=== PATIENT | female | born 1950 | race Caucasian/White ===

== ENCOUNTER 2018-07-16 14:42 | Emergency (ER) | END 2018-07-16 20:25 | disposition home or self-care (01) ==

== ENCOUNTER 2018-09-21 12:12 | Inpatient (IN) | payer MEDICARE, OTHER ==
[~2018-09-21] VITALS: Ht 162.6 cm; Wt 72.1 kg
[~2018-09-21 12:12] MED LIST: METO-319 PO; NIFE60TA18 PO
[2018-09-21] MEDS ORDERED: ASPIRIN 325 MG TAB PO STA (12:37)
[2018-09-21] MEDS ORDERED: SOD CHLORIDE 0.9% 1,000 ML IV STA (12:37)
[2018-09-21] MEDS ORDERED: LOSA1TAB28 PO (13:11)
--- NOTE | 2018-09-21 13:13 | ERD ---
ER Documentation Chief Complaint Chief Complaint WEAKNESS SINCE YESTERDAY HPI This is a 67-year-old female who said she woke up 2 days ago with her right arm/hand week. She says it is not gotten worse or better and she thinks she had a small stroke. No tingling in the face arm or leg no weakness in the face or leg on the right side. She is having off-and-on blurry vision at times which can happen with high blood pressure. 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 ROS All systems reviewed and are negative except as per history of present illness. Medications Home Meds Reported Medications Losartan-Hydrochlorothiazide (Losartan-HCTZ) 100-12.5 Mg Tab, 1 TAB PO DAILY, TAB 09/21/18 Nifedipine* (Nifedipine ER*) 60 Mg Tablet.sa, 60 MG PO DAILY, TAB.SA 09/03/18 Metoprolol Succinate* (Toprol XL*) 50 Mg Tab.er.24h, 50 MG PO DAILY, #30 TAB 09/03/18 Allergies Allergies: Coded Allergies: No Known Allergy (Unverified , 09/21/18) PMhx/Soc History of Surgery: No Anesthesia Reaction: No Hx Neurological Disorder: No Hx Respiratory Disorders: No Hx Cardiac Disorders: Yes (HTN) Hx Psychiatric Problems: No Hx Miscellaneous Medical Probl: No Hx Alcohol Use: Yes Hx Substance Use: Yes (MARIJUANA) Hx Tobacco Use: No Smoking Status: Never smoker FmHx Family History: No coronary disease Physical Exam Vitals Vital Signs Date Temp Pulse Resp B/P (MAP) Pulse Ox O2 O2 Flow FiO2 Time Delivery Rate 09/21/18 81 17 184/100 100 Room Air 13:15 (128) 09/21/18 Nasal 2 12:56 Cannula 09/21/18 98.5 86 18 207/137 99 12:17 (160) Physical Exam Const: Well-developed, well-nourished Head: Atraumatic, normocephalic Eyes: Normal Conjunctiva, PERRLA, EOMI, normal sclera, no nystagmus ENT: Normal External Ears, Nose and Mouth, moist mucus membranes. Neck: Full range of motion. No meningismus, no lymphadenopathy. Resp: Clear to auscultation bilaterally, no wheezing, rhonchi, rales Cardio: Regular rate and rhythm, no murmurs, S1 S2 present Abd: Soft, non tender x 4, non distended. 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, 4 out of 5, slightly weak at the biceps Psych: Normal Mood and Affect Result Diagram: 09/21/18 1254 09/21/18 1254 Results 24 hrs Laboratory Tests Test 09/21/18 12:54 White Blood Count 3.8 10^3/ul Red Blood Count 4.85 10^6/ul Hemoglobin 13.9 g/dl Hematocrit 42.7 % Mean Corpuscular Volume 88.0 fl Mean Corpuscular Hemoglobin 28.7 pg Mean Corpuscular Hemoglobin Concent 32.6 g/dl Red Cell Distribution Width 12.1 % Platelet Count 237 10^3/UL Mean Platelet Volume 10.1 fl Immature Granulocytes % 0.300 % Neutrophils % 56.1 % Lymphocytes % 28.9 % Monocytes % 14.1 % Eosinophils % 0.3 % Basophils % 0.3 % Nucleated Red Blood Cells % 0.0 /100WBC Immature Granulocytes # 0.010 10^3/ul Neutrophils # 2.1 10^3/ul Lymphocytes # 1.1 10^3/ul Monocytes # 0.5 10^3/ul Eosinophils # 0.0 10^3/ul Basophils # 0.0 10^3/ul Nucleated Red Blood Cells # 0.0 10^3/ul Prothrombin Time 12.1 Sec Prothrombin Time Ratio 0.9 INR International Normalized Ratio 0.89 Activated Partial Thromboplast Time 24.3 Sec Sodium Level 141 mmol/L Potassium Level 3.6 mmol/L Chloride Level 103 mmol/L Carbon Dioxide Level 26 mmol/L Anion Gap 12 Blood Urea Nitrogen 15 mg/dl Creatinine 0.92 mg/dl Est Glomerular Filtrat Rate mL/min > 60 mL/min Glucose Level 109 mg/dl Hemoglobin A1c 5.3 % Calcium Level 10.0 mg/dl Total Bilirubin 0.4 mg/dl Direct Bilirubin 0.00 mg/dl Indirect Bilirubin 0.4 mg/dl Aspartate Amino Transf (AST/SGOT) 25 IU/L Alanine Aminotransferase (ALT/SGPT) 8 IU/L Alkaline Phosphatase 83 IU/L Troponin I < 0.012 ng/ml Total Protein 7.9 g/dl Albumin 4.5 g/dl Globulin 3.40 g/dl Albumin/Globulin Ratio 1.32 Triglycerides Level 86 mg/dl Cholesterol Level 199 mg/dl LDL Cholesterol, Calculated 120 mg/dl HDL Cholesterol 62 mg/dl Cholesterol/HDL Ratio 3.2 RATIO Current Medications Medications Dose Sig/Genevieve Start Time Status Last (Trade) Ordered Route PRN Stop Time Admin Dose Reason Admin Sodium 1,000 ml @ Q1H STAT 09/21/18 DC 09/21/18 Chloride 1,000 mls/hr IV 12:37 12:56 09/21/18 13:36 Aspirin 325 mg ONCE STAT 09/21/18 DC 09/21/18 (Aspirin) PO 12:37 12:57 09/21/18 12:39 Procedures/MDM EKG: Rate/Rhythm: Normal sinus rhythm with inverted T waves laterally QRS, ST, QT: NORMAL AL, QRS, QT] Impression: Abnormal EKG MR #: [id number] DOS: 09/21/18 1237 Ordering MD: BUSTER SHULTZ DO Location: E/R Room/Bed: PROCEDURE: XR Chest. CLINICAL INDICATION: Stroke. Change in mental status. Shortness of breath. TECHNIQUE: Frontal chest x-ray was obtained. COMPARISON: None. FINDINGS: The heart is not enlarged. Mediastinum is not widened. No hilar masses seen. Lungs are clear of any infiltrates. There is no effusion or pneumothorax. The osseous structures appear normal. IMPRESSION: No evidence for active cardiopulmonary disease. .Corky Nieto MD, Date Time Electronically viewed and signed by .Corky Nieto MD, on 09/21/2018 13:28 .A/ CC: BUSTER SHULTZ DO [id number] We will admit the patient for CVA workup Departure Diagnosis: Primary Impression: CVA (cerebral vascular accident) CVA mechanism: unspecified Qualified Codes: I63.9 - Cerebral infarction, unspecified Condition: Stable BUSTER SHULTZ DO Sep 21, 2018 13:13
[2018-09-21] MEDS ORDERED: ACETAMINOPHEN 325 MG TAB PO PRN (16:00)
[2018-09-21] MEDS ORDERED: ONDANSETRON 4 MG INJ IV PRN (16:00)
--- NOTE | 2018-09-21 16:16 | HP ---
Date/Time of Note Date/Time of Note DATE: 09/21/18 TIME: 16:07 Assessment/Plan VTE Prophylaxis SCD applied (from Nsg): Yes Pharmacological prophylaxis: heparin Lines/Catheters IV Catheter Type (from Nrsg): [place] line still needed: No Urinary Cath still in place: No Assessment/Plan Hospital Course 67 y/o pmh HX of HTN admitted with RUE weakness x1 day, suspicious for CVA. Assessment/Plan #RUE weakness-suspicious for CVA -will consult neurology -MRI Brain w/ DWI -carotid US vs MRA -TTE -BP control but will allow permissive HTN -may need to start on ASA and statin. Lipids controlled but may benefit given high ASCVD core and risk -PT eval & treat #HTN -continue current meds, MTP 50, losartan/hctz 100/12.5, nifedipine 60 Dispo: I anticipate she will be hospitalized ~2 days for workup and treatment Result Diagram: 09/21/18 1254 09/21/18 1254 Results 24hrs Laboratory Tests Test 09/21/18 12:54 White Blood Count 3.8 L Red Blood Count 4.85 Hemoglobin 13.9 Hematocrit 42.7 Mean Corpuscular Volume 88.0 Mean Corpuscular Hemoglobin 28.7 L Mean Corpuscular Hemoglobin Concent 32.6 Red Cell Distribution Width 12.1 Platelet Count 237 Mean Platelet Volume 10.1 Immature Granulocytes % 0.300 Neutrophils % 56.1 Lymphocytes % 28.9 Monocytes % 14.1 H Eosinophils % 0.3 Basophils % 0.3 Nucleated Red Blood Cells % 0.0 Immature Granulocytes # 0.010 Neutrophils # 2.1 Lymphocytes # 1.1 Monocytes # 0.5 Eosinophils # 0.0 Basophils # 0.0 Nucleated Red Blood Cells # 0.0 Prothrombin Time 12.1 Prothrombin Time Ratio 0.9 INR International Normalized Ratio 0.89 Activated Partial Thromboplast Time 24.3 Sodium Level 141 Potassium Level 3.6 Chloride Level 103 Carbon Dioxide Level 26 Anion Gap 12 Blood Urea Nitrogen 15 Creatinine 0.92 Est Glomerular Filtrat Rate mL/min > 60 Glucose Level 109 Hemoglobin A1c 5.3 Calcium Level 10.0 Total Bilirubin 0.4 Direct Bilirubin 0.00 Indirect Bilirubin 0.4 Aspartate Amino Transf (AST/SGOT) 25 Alanine Aminotransferase (ALT/SGPT) 8 L Alkaline Phosphatase 83 Troponin I < 0.012 Total Protein 7.9 Albumin 4.5 Globulin 3.40 H Albumin/Globulin Ratio 1.32 Triglycerides Level 86 Cholesterol Level 199 LDL Cholesterol, Calculated 120 HDL Cholesterol 62 Cholesterol/HDL Ratio 3.2 HPI/ROS Admit Date/Time Admit Date/Time 1600 09/21/2018 Hx of Present Illness Patient with pmh of HTN presented to ED with R arm weakness x 1 day, noticed when she woke up yesterday morning. She also endorses blurry vision yesterday which has improved. endorses some loss of balance. Denies falls. Denies trauma. Denies pain. Denies headache. Denies fevers, chills, nausea, vomiting, diarrhea, constipation, abdominal pain. Upon admission to ED patients BP was 207/136--> improved to 150s/90s without meds. She doesnt check her BP at home, this month saw her pcp and it was 150/80s in office. she is compliant with meds. No prior hx of CVA. In ED was found to have chronic lacunar strokes on CT. CXR negative. EKG with TWI V4-V6 otherwise NSR, no ST elevations or depressions. ROS see above. PMH/Family/Social Past Medical History HTN Medications Current Medications Ondansetron HCl (Zofran Inj) 4 mg ER BRIDGE PRN IV NAUSEA/VOMITING; Start 09/21/18 at 16:00; Stop 09/22/18 at 15:59 Acetaminophen (Tylenol Tab) 650 mg ER BRIDGE PRN PO .MILD PAIN 1-3 OR TEMP; Start 09/21/18 at 16:00; Stop 09/22/18 at 15:59 Metoprolol Succinate (Toprol Xl) 50 mg DAILY PO ; Start 09/22/18 at 09:00 Nifedipine (Procardia Xl) 60 mg DAILY PO ; Start 09/22/18 at 09:00 Losartan Potassium (Cozaar) 100 mg DAILY PO ; Start 09/22/18 at 09:00 Coded Allergies: No Known Allergy (Unverified , 09/21/18) Past Surgical History none Family History Significant Family History: no pertinent family hx Social History 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 Denies smoking. Denies alcohol. Alcohol Use: none Smoking Status: Never smoker Drug Use: none Exam/Review of Systems Vital Signs Vitals Vital Signs Date Temp Pulse Resp B/P (MAP) Pulse Ox O2 O2 Flow FiO2 Time Delivery Rate 09/21/18 81 14 119/107 99 Room Air 15:56 (111) 09/21/18 98.2 14:27 09/21/18 2 12:56 Exam Exam Gen-NAD HEENT-op clear, mmm CV-rrr, nml s1/s2, no m/r/g pulm-CTAB, no w/r/r Ext-no c/c/e Neuro-CN II-XII intact. 5/5 bilateral lower extremity strength. 5/5 LUE strength. 4/5 RLE strength. No loss of sensation. MANUEL KENNY MD Sep 21, 2018 16:16
[2018-09-21 18:13] VITALS: PULSE 80
[2018-09-21 18:38] VITALS: BP 169/96; PULSE 89; RESP 18
[2018-09-21 20:00] VITALS: BP 161/92; PULSE 80; PULSE 85; RESP 19
--- NOTE | 2018-09-21 20:45 | CONS ---
Assessment/Plan Assessment/Plan Hospital Course 67 F w/ reported Hx of HTN, who presents for evaluation of R arm weakness...for which neurology is consulted. MRI confirmed a recent L ellis radiata infarction. CUS is without hemodynamically significant stenosis LDL 120 s/p asa 352mg x 1 (09/21) P: Start asa 81mg daily Add Lipitor 80mg hs in the short term (goal LDL < 70) Add UDS, ESR, RPR Await EKG/Echo PT/OT/ST as necessary BP control and other management per primary Consultation Date/Type/Reason Admit Date/Time 1600 09/21/2018 Type of Consult Neurology Reason for Consultation arm weakness Requesting Provider: MANUEL KENNY MD Date/Time of Note DATE: 09/21/18 TIME: 20:39 Hx of Present Illness Patient with pmh of HTN presented to ED with R arm weakness x 1 day, noticed when she woke up yesterday morning. She also endorses blurry vision yesterday which has improved. endorses some loss of balance. Denies falls. Denies trauma. Denies pain. Denies headache. Denies fevers, chills, nausea, vomiting, diarrhea, constipation, abdominal pain. Upon admission to ED patients BP was 207/136--> improved to 150s/90s without meds. She doesnt check her BP at home, this month saw her pcp and it was 150/80s in office. she is compliant with meds. No prior hx of CVA. In ED was found to have chronic lacunar strokes on CT. CXR negative. EKG with TWI V4-V6 otherwise NSR, no ST elevations or depressions. 12 PT ROS ow neg Exam/Review of Systems Exam Vitals Vital Signs Date Temp Pulse Resp B/P (MAP) Pulse Ox O2 O2 Flow FiO2 Time Delivery Rate 09/21/18 98.1 85 19 161/92 98 20:00 (115) 09/21/18 Room Air 18:38 09/21/18 2 12:56 Exam PE: Gen Appearance: No Apparent Distress HEENT: Normocephalic Cardiovascular: Regular rate Lungs: Clear bilaterally Abdomen: Soft Extremities: Dry NE: The patient was alert and oriented. Language was normal. Fund of knowledge was normal. Pupils were equal and reactive to light. There was no afferent pupillary defect. Visual angel were normal. Funduscopic examination was limited. Extra-ocular movements were full. Ptosis was absent. There was no nystagmus. Facial sensation was normal. Face was symmetric with normal strength. Hearing was intact. Palate movements were normal. Neck strength was normal. There was normal tongue bulk and speed of movement. Tone was normal. Muscle bulk was normal. I did not see fasciculations. RUE was moderately weak. Vibration sensation was normal. Temperature and pinprick sensation was normal. Rapid alternating movements were normal. There was no dysmetria. There was no intention tremor. Gait was deferred due to bedrest. Arm and leg reflexes were symmetric. Duvall's sign was absent. Plantar responses were flexor. Results Result Diagram: 09/21/18 1254 09/21/18 1254 Results 24hrs Laboratory Tests Test 09/21/18 12:54 09/21/18 18:05 White Blood Count 3.8 L Red Blood Count 4.85 Hemoglobin 13.9 Hematocrit 42.7 Mean Corpuscular Volume 88.0 Mean Corpuscular Hemoglobin 28.7 L Mean Corpuscular Hemoglobin Concent 32.6 Red Cell Distribution Width 12.1 Platelet Count 237 Mean Platelet Volume 10.1 Immature Granulocytes % 0.300 Neutrophils % 56.1 Lymphocytes % 28.9 Monocytes % 14.1 H Eosinophils % 0.3 Basophils % 0.3 Nucleated Red Blood Cells % 0.0 Immature Granulocytes # 0.010 Neutrophils # 2.1 Lymphocytes # 1.1 Monocytes # 0.5 Eosinophils # 0.0 Basophils # 0.0 Nucleated Red Blood Cells # 0.0 Prothrombin Time 12.1 Prothrombin Time Ratio 0.9 INR International Normalized Ratio 0.89 Activated Partial Thromboplast Time 24.3 Sodium Level 141 Potassium Level 3.6 Chloride Level 103 Carbon Dioxide Level 26 Anion Gap 12 Blood Urea Nitrogen 15 Creatinine 0.92 Est Glomerular Filtrat Rate mL/min > 60 Glucose Level 109 Hemoglobin A1c 5.3 Calcium Level 10.0 Total Bilirubin 0.4 Direct Bilirubin 0.00 Indirect Bilirubin 0.4 Aspartate Amino Transf (AST/SGOT) 25 Alanine Aminotransferase (ALT/SGPT) 8 L Alkaline Phosphatase 83 Troponin I < 0.012 Total Protein 7.9 Albumin 4.5 Globulin 3.40 H Albumin/Globulin Ratio 1.32 Triglycerides Level 86 Cholesterol Level 199 LDL Cholesterol, Calculated 120 HDL Cholesterol 62 Cholesterol/HDL Ratio 3.2 Urine Color COLORLESS Urine Clarity CLEAR Urine pH 7.0 Urine Specific [place] 1.004 Urine Ketones NEGATIVE Urine Nitrite NEGATIVE Urine Bilirubin NEGATIVE Urine Urobilinogen NEGATIVE Urine Leukocyte Esterase NEGATIVE Urine Hemoglobin NEGATIVE Urine Glucose NEGATIVE Urine Total Protein NEGATIVE Medications Medication Current Medications Ondansetron HCl (Zofran Inj) 4 mg ER BRIDGE PRN IV NAUSEA/VOMITING; Start 09/21/18 at 16:00; Stop 09/22/18 at 15:59 Acetaminophen (Tylenol Tab) 650 mg ER BRIDGE PRN PO .MILD PAIN 1-3 OR TEMP; Start 09/21/18 at 16:00; Stop 09/22/18 at 15:59 Metoprolol Succinate (Toprol Xl) 50 mg DAILY PO ; Start 09/22/18 at 09:00 Nifedipine (Procardia Xl) 60 mg DAILY PO ; Start 09/22/18 at 09:00 Losartan Potassium (Cozaar) 100 mg DAILY PO ; Start 09/22/18 at 09:00 Hydrochlorothiazide (Hydrochlorothiazide) 12.5 mg DAILY PO ; Start 09/22/18 at 09:00 Heparin Sodium (Porcine) (Heparin (5000 Units/1ml)) 5,000 unit BID SC ; Start 09/21/18 at 21:00 Miscellaneous Information Patients own medicat... BID@10,16 XX ; Start 09/22/18 at 10:00 Past Medical History reviewed Home Meds Reported Medications Losartan-Hydrochlorothiazide (Losartan-HCTZ) 100-12.5 Mg Tab, 1 TAB PO DAILY, TAB 09/21/18 Nifedipine* (Nifedipine ER*) 60 Mg Tablet.sa, 60 MG PO DAILY, TAB.SA 09/03/18 Metoprolol Succinate* (Toprol XL*) 50 Mg Tab.er.24h, 50 MG PO DAILY, #30 TAB 09/03/18 Medications Current Medications Ondansetron HCl (Zofran Inj) 4 mg ER BRIDGE PRN IV NAUSEA/VOMITING; Start 09/21/18 at 16:00; Stop 09/22/18 at 15:59 Acetaminophen (Tylenol Tab) 650 mg ER BRIDGE PRN PO .MILD PAIN 1-3 OR TEMP; Start 09/21/18 at 16:00; Stop 09/22/18 at 15:59 Metoprolol Succinate (Toprol Xl) 50 mg DAILY PO ; Start 09/22/18 at 09:00 Nifedipine (Procardia Xl) 60 mg DAILY PO ; Start 09/22/18 at 09:00 Losartan Potassium (Cozaar) 100 mg DAILY PO ; Start 09/22/18 at 09:00 Hydrochlorothiazide (Hydrochlorothiazide) 12.5 mg DAILY PO ; Start 09/22/18 at 09:00 Heparin Sodium (Porcine) (Heparin (5000 Units/1ml)) 5,000 unit BID SC ; Start 09/21/18 at 21:00 Miscellaneous Information Patients own medicat... BID@10,16 XX ; Start 09/22/18 at 10:00 Allergies: Coded Allergies: No Known Allergy (Unverified , 09/21/18) Past Surgical History reviewed Social History Alcohol Use: none Smoking Status: Never smoker Drug Use: none JESSICA DUARTE Sep 21, 2018 20:45
[2018-09-21] MEDS: ATORVASTATIN 80 MG TAB PO SCH (21:28)
[2018-09-21 21:31] VITALS: Ht 162.6 cm; Wt 72.1 kg
[2018-09-21] MEDS: HEPARIN 5,000 UNIT/1 ML VIAL SC SCH (22:26)
[2018-09-22] VITALS (9 sets, daily range): BP systolic 134–156; BP diastolic 81–91; PULSE 56–88; RESP 18
[2018-09-22] MEDS: LOSARTAN 50 MG TAB PO SCH (09:10)
[2018-09-22] MEDS: HYDROCHLOROTHIAZIDE 12.5 MG CAP PO SCH (09:10)
[2018-09-22] MEDS: NIFEdipine (XL) 60 MG TAB PO SCH (09:10)
[2018-09-22] MEDS: ASPIRIN (EC) 81 MG TAB PO SCH (09:11)
[2018-09-22] MEDS: METOPROLOL (XL) 50 MG TAB PO SCH (09:14)
--- NOTE | 2018-09-22 09:35 | PN ---
Date/Time of Note Date/Time of Note DATE: 09/22/18 TIME: 09:31 Subjective Patient continues to have RUE weakness. Denies fevers, chills, nausea, vomiting, diarrhea, constipation, chest pain, sob, cough. BP better this am. No overnight events. TTE done, read pending. Evaluated by PT, weakness mostly limited to distal RUE. Gait at baseline. MRI confirmed acute infarct within dorsal L ellis radiata. Carotid duplex negative for hemodynamically significant stenosis. Started on atorva and aspirin by neurologist. Objective Vitals Vital Signs Date Temp Pulse Resp B/P (MAP) Pulse Ox O2 O2 Flow FiO2 Time Delivery Rate 09/22/18 56 08:12 09/22/18 98.4 18 134/84 98 Room Air 07:54 (101) 09/21/18 2 12:56 Intake and Output 09/21/18 09/21/18 09/22/18 1515:00 23:00 07:00 IntakeIntake Total 150 ml BalanceBalance 150 ml Results Result Diagram: 09/22/18 0549 09/22/18 0549 Medications Medications Current Medications Ondansetron HCl (Zofran Inj) 4 mg ER BRIDGE PRN IV NAUSEA/VOMITING; Start 09/21/18 at 16:00; Stop 09/22/18 at 15:59 Acetaminophen (Tylenol Tab) 650 mg ER BRIDGE PRN PO .MILD PAIN 1-3 OR TEMP; Start 09/21/18 at 16:00; Stop 09/22/18 at 15:59 Metoprolol Succinate (Toprol Xl) 50 mg DAILY PO Last administered on 09/22/18at 09:14; Admin Dose 50 MG; Start 09/22/18 at 09:00 Nifedipine (Procardia Xl) 60 mg DAILY PO ; Start 09/22/18 at 09:00 Losartan Potassium (Cozaar) 100 mg DAILY PO ; Start 09/22/18 at 09:00 Hydrochlorothiazide (Hydrochlorothiazide) 12.5 mg DAILY PO ; Start 09/22/18 at 09:00 Heparin Sodium (Porcine) (Heparin (5000 Units/1ml)) 5,000 unit BID SC Last administered on 09/21/18at 22:26; Admin Dose 5,000 UNIT; Start 09/21/18 at 21:00 Miscellaneous Information Patients own medicat... BID@,16 XX ; Start 09/22/18 at 10:00 Aspirin (Halfprin) 81 mg DAILY PO ; Start 09/22/18 at 09:00 Atorvastatin Calcium (Lipitor) 80 mg HS PO Last administered on 09/21/18at 21:28; Admin Dose 80 MG; Start 09/21/18 at 21:00 VTE Prophylaxis Risk score (from Ns)>0 risk: 4 SCD applied (from Ns): Yes Pharmacological prophylaxis: heparin Lines/Catheters IV Catheter Type: Peripheral IV Ramos in Place: No Assessment/Plan Hospital Course 67 y/o pmh HX of HTN admitted with RUE weakness x1 day, confirmed CVA. Assessment/Plan #acute CVA -appreciate neuro recs -pending TTE read -BP control but will allow permissive HTN -continue ASA 81, atorva 80 -PT #HTN will keep BP <160 systolic and tighter control after first few days post cva -continue current meds, MTP 50, losartan/hctz 100/12.5, nifedipine 60 Dispo: hope to discharge tomorrow pending completion of workup and clinical stability MANUEL KENNY MD Sep 22, 2018 09:35
[2018-09-22] MEDS: HEPARIN 5,000 UNIT/1 ML VIAL SC SCH ×2 (10:18→22:00)
[2018-09-22] MEDS ORDERED: POTASSIUM CHLORIDE (SR) 20 MEQ TAB PO STA (11:36)
[2018-09-22] MEDS: ATORVASTATIN 80 MG TAB PO SCH (21:57)
[2018-09-23] VITALS (12 sets, daily range): BP systolic 114–167; BP diastolic 70–86; PULSE 58–96; RESP 16–18
--- NOTE | 2018-09-23 08:33 | PN ---
Date/Time of Note Date/Time of Note DATE: 09/23/18 TIME: 08:30 Assessment/Plan VTE Prophylaxis Risk score (from Nsg)>0 risk: 4 SCD applied (from Nsg): Yes Pharmacological prophylaxis: heparin Lines/Catheters IV Catheter Type (from Nrsg): Peripheral IV Urinary Cath still in place: No Assessment/Plan Assessment/Plan 1. Thrombotic infarct, stable, on asa and statin and BP controlled, will obtain echocardiogram and monitor BP and rhythm for additional 24 hours. 2. Case management requested-->acute rehab at [facility] or [facility] Result Diagram: 09/22/18 0549 09/23/18 0535 Results 24hrs Laboratory Tests Test 09/23/18 05:35 Sodium Level 144 Potassium Level 3.5 Chloride Level 106 Carbon Dioxide Level 31 Anion Gap 7 Blood Urea Nitrogen 19 Creatinine 1.19 H Est Glomerular Filtrat Rate mL/min 45 L Glucose Level 95 Calcium Level 9.7 Subjective 24 Hr Interval Summary Cardiovascular: No chest pain Gastrointestinal: no complaints Genitourinary: no complaints Musculoskeletal: no complaints Neurologic: other (weakness left upper extrem) Exam/Review of Systems Exam Vitals Vital Signs Date Temp Pulse Resp B/P (MAP) Pulse Ox O2 O2 Flow FiO2 Time Delivery Rate 09/23/18 94 08:01 09/23/18 97.7 16 134/77 98 Room Air 07:22 (96) 09/21/18 2 12:56 Intake and Output 09/22/18 09/22/18 09/23/18 1515:00 23:00 07:00 IntakeIntake Total 800 ml BalanceBalance 800 ml Neck: No jvd Respiratory: clear to auscultation Cardiovascular: regular rate and rhythm Gastrointestinal: soft Neurological: focal weakness (left upper extrem) Results Results 24hrs Laboratory Tests Test 09/23/18 05:35 Sodium Level 144 Potassium Level 3.5 Chloride Level 106 Carbon Dioxide Level 31 Anion Gap 7 Blood Urea Nitrogen 19 Creatinine 1.19 H Est Glomerular Filtrat Rate mL/min 45 L Glucose Level 95 Calcium Level 9.7 Medications Medication Current Medications Metoprolol Succinate (Toprol Xl) 50 mg DAILY PO Last administered on 09/22/18at 09:14; Admin Dose 50 MG; Start 09/22/18 at 09:00 Nifedipine (Procardia Xl) 60 mg DAILY PO Last administered on 09/22/18at 09:10; Admin Dose 60 MG; Start 09/22/18 at 09:00 Losartan Potassium (Cozaar) 100 mg DAILY PO Last administered on 09/22/18 09:10; Admin Dose 100 MG; Start 09/22/18 at 09:00 Hydrochlorothiazide (Hydrochlorothiazide) 12.5 mg DAILY PO Last administered on 09/22/18 09:10; Admin Dose 12.5 MG; Start 09/22/18 at 09:00 Heparin Sodium (Porcine) (Heparin (5000 Units/1ml)) 5,000 unit BID SC Last administered on 09/22/18 22:00; Admin Dose 5,000 UNIT; Start 09/21/18 at 21:00 Miscellaneous Information Patients own medicat... BID@10,16 XX ; Start 09/22/18 at 10:00 Aspirin (Halfprin) 81 mg DAILY PO Last administered on 09/22/18 09:11; Admin Dose 81 MG; Start 09/22/18 at 09:00 Atorvastatin Calcium (Lipitor) 80 mg HS PO Last administered on 09/22/18 21 :57; Admin Dose 80 MG; Start 09/21/18 at 21:00 RENITA WILL MD Sep 23, 2018 08:32
[2018-09-23] MEDS: NIFEdipine (XL) 60 MG TAB PO SCH (08:44)
[2018-09-23] MEDS: HYDROCHLOROTHIAZIDE 12.5 MG CAP PO SCH (08:45)
[2018-09-23] MEDS: LOSARTAN 50 MG TAB PO SCH (08:45)
[2018-09-23] MEDS: METOPROLOL (XL) 50 MG TAB PO SCH (08:45)
[2018-09-23] MEDS: ASPIRIN (EC) 81 MG TAB PO SCH (08:45)
[2018-09-23] MEDS: HEPARIN 5,000 UNIT/1 ML VIAL SC SCH ×2 (08:57→20:54)
--- NOTE | 2018-09-23 12:09 | RADRPT ---
Echocardiogram Report Patient Name: CHERYLE BOXPatient ID: [id number] : 1950 (68y )Study Date: 09/22/2018 8:41:58 AM Gender: FAccession #: [id number] Tech: JOHN Location: Ref.Physician: MANUEL KENNY Height(Cm): BSA: Weight(Kg): Quality: GoodAccount #: Procedures: Echocardiographic Report: Transthoracic echocardiogram with complete 2D, M-Mode, and doppler examination. Indications: Cerebrovascular Accident. Measurements: 2D/M Mode Doppler Measurement Value Normal Range Measurement Value Normal Range LVIDd 2D 3.8 [ 3.8 - 5.2 ] cm MIKA Vmax 2.0 [ 2.0 - 4.0 ] cm2 LVIDs 2D 2.5 [ 2.2 - 3.5 ] cm AV Mean Luis A 1.0 [ 70.0 - 90.0 ] cm/sec LVPWd 2D 1.1 [ 0.6 - 0.9 ] cm AV Mean PG 5.0 [ 2.0 - 4.0 ] mmHg IVSd 2D 1.2 [ 0.6 - 0.9 ] cm AV Peak Luis A 1.4 [ 100.0 - 170.0 ] cm/sec IVS/LVPW 2D 1.0 ratio AV Peak PG 8.0 [ 2.0 - 9.0 ] mmHg EF 2D 60.0 [ 54.0 - 74.0 ] percent AV VTI 22.9 cm LVOT Diam 2.0 [ 2.1 - 2.5 ] cm LVOT Peak Luis A 0.9 [ 70.0 - 110.0 ] cm/sec LVOT Area 3.1 cm2 LVOT Peak PG 3.0 [ 2.0 - 6.0 ] mmHg MV E Peak Luis A 0.6 [ 60.0 - 130.0 ] cm/sec MV A Peak Luis A 0.8 [ 100.0 - 120.0 ] cm/sec MV E/A 0.7 [ 0.8 - 1.5 ] ratio MV Decel Time 278 [ 104 - 258 ] msec Lat E` Luis A 0.0 [ 10.0 - 15.0 ] cm/sec Med E` Luis A 0.0 cm/sec MV E/A 0.7 [ 0.8 - 1.5 ] ratio PV Peak Luis A 0.9 [ 40.0 - 80.0 ] cm/sec PV Peak PG 3.0 mmHg Findings: Left Ventricle: Normal left ventricular systolic function. Mild concentric left ventricular hypertrophy. Ejection fraction is visually estimated at 60-65 %. Tissue Doppler/Mitral Doppler indices are consistent with impaired relaxation (Stage I diastolic dysfunction). Right Ventricle: Normal right ventricular size. Normal right ventricular systolic function. Left Atrium: Upper limit of normal left atrial size. Right Atrium: The right atrium is normal in size. Mitral Valve: Normal appearance and function of the mitral valve with trace physiologic regurgitation. Aortic Valve: Normal appearance of the aortic valve. No significant aortic stenosis wit trivial insufficiency. Tricuspid Valve: Normal appearance and function of the tricuspid valve with trace physiologic regurgitation. Unable to obtain RVSP due to minimal presence of tricuspid regurgitation. Pulmonic Valve: Normal pulmonic valve appearance. There is trace pulmonic regurgitation. Pericardium: Normal pericardium with no significant pericardial effusion. Aorta: Normal aortic root. IVC: Normal size and normal respiratory collapse consistent with normal right atrial pressure. Conclusions: Normal left ventricular systolic function. Mild concentric left ventricular hypertrophy. Ejection fraction is visually estimated at 60-65 %. Tissue Doppler/Mitral Doppler indices are consistent with impaired relaxation (Stage I diastolic dysfunction). Normal right ventricular size. Normal right ventricular systolic function. Upper limit of normal left atrial size. Normal appearance of the aortic valve. No significant aortic stenosis wit trivial insufficiency. Normal pericardium with no significant pericardial effusion. Normal appearance and function of the tricuspid valve with trace physiologic regurgitation. Unable to obtain RVSP due to minimal presence of tricuspid regurgitation. Normal size and normal respiratory collapse consistent with normal right atrial pressure. No Vegetation, masses, or thrombi seen. Electronically Signed By: Curt Kennedy 2018-09-23 12:09:17 [facility]
--- NOTE | 2018-09-23 14:12 | CONS ---
Assessment/Plan Assessment/Plan Hospital Course (Demo Recall) Cryptogenic stroke- echo negative. no arrhythmia on tele. carotid u/s negative. - cont asa - c ont statin - outpt custodial tele monitor vs. loop - bp control Consultation Date/Type/Reason Admit Date/Time 1600 09/21/2018 Date/Time of Note DATE: 09/23/18 TIME: 14:12 Past Medical History Home Meds Reported Medications Losartan-Hydrochlorothiazide (Losartan-HCTZ) 100-12.5 Mg Tab, 1 TAB PO DAILY, TAB 09/21/18 Nifedipine* (Nifedipine ER*) 60 Mg Tablet.sa, 60 MG PO DAILY, TAB.SA 09/03/18 Metoprolol Succinate* (Toprol XL*) 50 Mg Tab.er.24h, 50 MG PO DAILY, #30 TAB 09/03/18 Medications Current Medications Metoprolol Succinate (Toprol Xl) 50 mg DAILY PO Last administered on 09/23/18at 08:45; Admin Dose 50 MG; Start 09/22/18 at 09:00 Nifedipine (Procardia Xl) 60 mg DAILY PO Last administered on 09/23/18at 08:44; Admin Dose 60 MG; Start 09/22/18 at 09:00 Losartan Potassium (Cozaar) 100 mg DAILY PO Last administered on 09/23/18at 08:45; Admin Dose 100 MG; Start 09/22/18 at 09:00 Hydrochlorothiazide (Hydrochlorothiazide) 12.5 mg DAILY PO Last administered on 09/23/18at 08:45; Admin Dose 12.5 MG; Start 09/22/18 at 09:00 Heparin Sodium (Porcine) (Heparin (5000 Units/1ml)) 5,000 unit BID SC Last administered on 09/23/18at 08:57; Admin Dose 5,000 UNIT; Start 09/21/18 at 21:00 Miscellaneous Information Patients own medicat... BID@10,16 XX ; Start 09/22/18 at 10:00 Aspirin (Halfprin) 81 mg DAILY PO Last administered on 09/23/18at 08:45; Admin Dose 81 MG; Start 09/22/18 at 09:00 Atorvastatin Calcium (Lipitor) 80 mg HS PO Last administered on 09/22/18at 21:57; Admin Dose 80 MG; Start 09/21/18 at 21:00 Allergies: Coded Allergies: No Known Allergy (Unverified , 09/21/18) Social History Alcohol Use: none Smoking Status: Former smoker Drug Use: none Exam/Review of Systems Exam Vitals Vital Signs Date Temp Pulse Resp B/P (MAP) Pulse Ox O2 O2 Flow FiO2 Time Delivery Rate 09/23/18 65 12:01 09/23/18 98.4 16 116/70 98 Room Air 11:24 (85) 09/21/18 2 12:56 Intake and Output 09/22/18 09/22/18 09/23/18 1515:00 23:00 07:00 IntakeIntake Total 800 ml BalanceBalance 800 ml Results Result Diagram: 09/22/18 0549 09/23/18 0535 Results 24hrs Laboratory Tests Test 09/23/18 05:35 Sodium Level 144 Potassium Level 3.5 Chloride Level 106 Carbon Dioxide Level 31 Anion Gap 7 Blood Urea Nitrogen 19 Creatinine 1.19 H Est Glomerular Filtrat Rate mL/min 45 L Glucose Level 95 Calcium Level 9.7 Medications Medication Current Medications Metoprolol Succinate (Toprol Xl) 50 mg DAILY PO Last administered on 09/23/18at 08:45; Admin Dose 50 MG; Start 09/22/18 at 09:00 Nifedipine (Procardia Xl) 60 mg DAILY PO Last administered on 09/23/18at 08:44; Admin Dose 60 MG; Start 09/22/18 at 09:00 Losartan Potassium (Cozaar) 100 mg DAILY PO Last administered on 09/23/18at 08:45; Admin Dose 100 MG; Start 09/22/18 at 09:00 Hydrochlorothiazide (Hydrochlorothiazide) 12.5 mg DAILY PO Last administered on 09/23/18at 08:45; Admin Dose 12.5 MG; Start 09/22/18 at 09:00 Heparin Sodium (Porcine) (Heparin (5000 Units/1ml)) 5,000 unit BID SC Last administered on 09/23/18at 08:57; Admin Dose 5,000 UNIT; Start 09/21/18 at 21:00 Miscellaneous Information Patients own medicat... BID@10,16 XX ; Start 09/22/18 at 10:00 Aspirin (Halfprin) 81 mg DAILY PO Last administered on 09/23/18at 08:45; Admin Dose 81 MG; Start 09/22/18 at 09:00 Atorvastatin Calcium (Lipitor) 80 mg HS PO Last administered on 09/22/18at 21:57; Admin Dose 80 MG; Start 09/21/18 at 21:00 SARAVANAN GOMEZ Sep 23, 2018 14:12
--- NOTE | 2018-09-23 16:45 | CONS ---
Assessment/Plan Assessment/Plan Hospital Course 67 F w/ reported Hx of HTN, who presents for evaluation of R arm weakness...for which neurology is consulted. MRI confirmed a recent L ellis radiata infarction. CUS is without hemodynamically significant stenosis Echo is unremarkable LDL 120 UDS neg RPR neg ESR wnl s/p asa 352mg x 1 (09/21) P: Cont asa 81mg daily Cont Lipitor 80mg hs in the short term (goal LDL < 70) PT/OT/ST as necessary BP control and other management per primary Neurologically cleared for d/c, to acute rehab if able Consultation Date/Type/Reason Admit Date/Time Sep 21, 2018 at 15:58 Type of Consult Neurology Reason for Consultation arm weakness Requesting Provider: MANUEL KENNY MD Date/Time of Note DATE: 09/23/18 TIME: 16:44 24 HR Interval Summary Free Text/Dictation Continues acute care Exam Vital Signs Vitals Vital Signs Date Temp Pulse Resp B/P (MAP) Pulse Ox O2 O2 Flow FiO2 Time Delivery Rate 09/23/18 96 16:01 09/23/18 97.7 16 167/86 98 Room Air 15:31 (113) 09/21/18 2 12:56 Intake and Output 09/22/18 09/22/18 09/23/18 1515:00 23:00 07:00 IntakeIntake Total 800 ml BalanceBalance 800 ml Exam Stable from prior JESSICA DUARTE Sep 23, 2018 16:45
[2018-09-23] MEDS: ATORVASTATIN 80 MG TAB PO SCH (20:49)
[2018-09-24] VITALS (8 sets, daily range): BP systolic 127–152; BP diastolic 79–87; PULSE 67–100; RESP 16–18
[2018-09-24] MEDS: NIFEdipine (XL) 60 MG TAB PO SCH (08:04)
[2018-09-24] MEDS: LOSARTAN 50 MG TAB PO SCH (08:04)
[2018-09-24] MEDS: HYDROCHLOROTHIAZIDE 12.5 MG CAP PO SCH (08:04)
[2018-09-24] MEDS: METOPROLOL (XL) 50 MG TAB PO SCH (08:05)
[2018-09-24] MEDS: ASPIRIN (EC) 81 MG TAB PO SCH (08:05)
[2018-09-24] MEDS: HEPARIN 5,000 UNIT/1 ML VIAL SC SCH (08:09)
--- NOTE | 2018-09-24 08:44 | PN ---
Date/Time of Note Date/Time of Note DATE: 09/24/18 TIME: 08:42 Assessment/Plan VTE Prophylaxis Risk score (from Ns)>0 risk: 5 SCD applied (from Ns): Yes Pharmacological prophylaxis: heparin Lines/Catheters IV Catheter Type [facility]from [facility] Saline Lock Urinary Cath still in place: No Assessment/Plan Assessment/Plan 1. Thrombotic infarct and related rue weakness 2. Neuro and cards consult and follow up apprrec 3. Stable neurologically and can transfer for rehab 4. Labs rev 5. BP controlled Result Diagram: 09/24/1846 09/24/1846 Results 24hrs Laboratory Tests Test 09/24/18 05:46 White Blood Count 3.8 L Red Blood Count 4.57 Hemoglobin 13.1 Hematocrit 41.1 Mean Corpuscular Volume 89.9 Mean Corpuscular Hemoglobin 28.7 L Mean Corpuscular Hemoglobin Concent 31.9 L Red Cell Distribution Width 12.5 Platelet Count 231 Mean Platelet Volume 10.0 Immature Granulocytes % 0.000 L Neutrophils % 40.8 Lymphocytes % 42.0 Monocytes % 15.9 H Eosinophils % 1.0 Basophils % 0.3 Nucleated Red Blood Cells % 0.0 Immature Granulocytes # 0.000 Neutrophils # 1.6 Lymphocytes # 1.6 Monocytes # 0.6 Eosinophils # 0.0 Basophils # 0.0 Nucleated Red Blood Cells # 0.0 Sodium Level 142 Potassium Level 3.9 Chloride Level 103 Carbon Dioxide Level 29 Anion Gap 10 Blood Urea Nitrogen 24 H Creatinine 1.45 H Est Glomerular Filtrat Rate mL/min 36 L Glucose Level 89 Calcium Level 9.7 Phosphorus Level 4.4 Magnesium Level 2.6 H Subjective 24 Hr Interval Summary Cardiovascular: No chest pain, No orthopenea Gastrointestinal: no complaints Genitourinary: no complaints Musculoskeletal: no complaints Neurologic: other (strength right upper extrem has improved a bit) Exam/Review of Systems Exam Vitals Vital Signs Date Temp Pulse Resp B/P (MAP) Pulse Ox O2 O2 Flow FiO2 Time Delivery Rate 09/24/18 100 08:01 09/24/18 97.6 18 129/82 98 Room Air 07:11 (98) 09/21/18 2 12:56 Intake and Output 09/23/18 09/23/18 09/24/18 1515:00 23:00 07:00 IntakeIntake Total 1500 ml 550 ml BalanceBalance 1500 ml 550 ml Neck: No jvd Respiratory: clear to auscultation Cardiovascular: regular rate and rhythm Gastrointestinal: soft Extremities: No edema Neurological: focal weakness (rue) Results Results 24hrs Laboratory Tests Test 09/24/18 05:46 White Blood Count 3.8 L Red Blood Count 4.57 Hemoglobin 13.1 Hematocrit 41.1 Mean Corpuscular Volume 89.9 Mean Corpuscular Hemoglobin 28.7 L Mean Corpuscular Hemoglobin Concent 31.9 L Red Cell Distribution Width 12.5 Platelet Count 231 Mean Platelet Volume 10.0 Immature Granulocytes % 0.000 L Neutrophils % 40.8 Lymphocytes % 42.0 Monocytes % 15.9 H Eosinophils % 1.0 Basophils % 0.3 Nucleated Red Blood Cells % 0.0 Immature Granulocytes # 0.000 Neutrophils # 1.6 Lymphocytes # 1.6 Monocytes # 0.6 Eosinophils # 0.0 Basophils # 0.0 Nucleated Red Blood Cells # 0.0 Sodium Level 142 Potassium Level 3.9 Chloride Level 103 Carbon Dioxide Level 29 Anion Gap 10 Blood Urea Nitrogen 24 H Creatinine 1.45 H Est Glomerular Filtrat Rate mL/min 36 L Glucose Level 89 Calcium Level 9.7 Phosphorus Level 4.4 Magnesium Level 2.6 H Medications Medication Current Medications Metoprolol Succinate (Toprol Xl) 50 mg DAILY PO Last administered on 09/24/18at 08:05; Admin Dose 50 MG; Start 09/22/18 at 09:00 Nifedipine (Procardia Xl) 60 mg DAILY PO Last administered on 09/24/18at 08:04; Admin Dose 60 MG; Start 09/22/18 at 09:00 Losartan Potassium (Cozaar) 100 mg DAILY PO Last administered on 09/24/18at 08:04; Admin Dose 100 MG; Start 09/22/18 at 09:00 Hydrochlorothiazide (Hydrochlorothiazide) 12.5 mg DAILY PO Last administered on 09/24/18at 08:04; Admin Dose 12.5 MG; Start 09/22/18 at 09:00 Heparin Sodium (Porcine) (Heparin (5000 Units/1ml)) 5,000 unit BID SC Last administered on 09/24/18at 08:09; Admin Dose 5,000 UNIT; Start 09/21/18 at 21:00 Miscellaneous Information Patients own medicat... BID@10,16 XX ; Start 09/22/18 at 10:00 Aspirin (Halfprin) 81 mg DAILY PO Last administered on 09/24/18at 08:05; Admin Dose 81 MG; Start 09/22/18 at 09:00 Atorvastatin Calcium (Lipitor) 80 mg HS PO Last administered on 09/23/18at 20:49; Admin Dose 80 MG; Start 09/21/18 at 21:00 RENITA WILL MD Sep 24, 2018 08:43
[2018-09-24] MEDS ORDERED: ASPI-1044 PO (08:45)
[2018-09-24] MEDS ORDERED: ATOR-2 PO (08:45)
--- NOTE | 2018-09-24 13:51 | CONS ---
Assessment/Plan Assessment/Plan Hospital Course 67 F w/ reported Hx of HTN, who presents for evaluation of R arm weakness...for which neurology is consulted. MRI confirmed a recent L ellis radiata infarction. CUS is without hemodynamically significant stenosis Echo is unremarkable LDL 120 UDS neg RPR neg ESR wnl s/p asa 352mg x 1 (09/21) P: Cont asa 81mg daily Cont Lipitor 80mg hs in the short term (goal LDL < 70) PT/OT/ST as necessary BP control and other management per primary Neurologically cleared for d/c, to acute rehab if able Consultation Date/Type/Reason Admit Date/Time Sep 21, 2018 at 15:58 Type of Consult Neurology Reason for Consultation stroke Requesting Provider: MANUEL KENNY MD Date/Time of Note DATE: 09/24/18 TIME: 13:51 24 HR Interval Summary Free Text/Dictation Continues acute care Exam Vital Signs Vitals Vital Signs Date Temp Pulse Resp B/P (MAP) Pulse Ox O2 O2 Flow FiO2 Time Delivery Rate 09/24/18 97 12:01 09/24/18 97.7 18 127/79 98 Room Air 11:37 (95) 09/21/18 2 12:56 Intake and Output 09/23/18 09/23/18 09/24/18 1515:00 23:00 07:00 IntakeIntake Total 1500 ml 550 ml BalanceBalance 1500 ml 550 ml Exam PE: Gen Appearance: No Apparent Distress HEENT: Normocephalic Cardiovascular: Regular rate Lungs: Clear bilaterally Abdomen: Soft Extremities: Dry NE: The patient was alert and oriented. Language was normal. Fund of knowledge was normal. Pupils were equal and reactive to light. There was no afferent pupillary defect. Visual angel were normal. Funduscopic examination was limited. Extra-ocular movements were full. Ptosis was absent. There was no nystagmus. Facial sensation was normal. Face was symmetric with normal strength. Hearing was intact. Palate movements were normal. Neck strength was normal. There was normal tongue bulk and speed of movement. Tone was normal. Muscle bulk was normal. I did not see fasciculations. RUE was moderately weak. Vibration sensation was normal. Temperature and pinprick sensation was normal. Rapid alternating movements were normal. There was no dysmetria. There was no intention tremor. Gait was deferred due to bedrest. Arm and leg reflexes were symmetric. Duvall's sign was absent. Plantar responses were flexor. HEATHER GALVEZ NP Sep 24, 2018 13:51 JESSICA DUARTE Sep 24, 2018 14:40
--- NOTE | 2018-09-24 23:02 | CONS ---
Assessment/Plan Assessment/Plan Hospital Course (Demo Recall) Cryptogenic stroke- echo negative. no arrhythmia on tele. carotid u/s negative. - cont asa - cont statin - outpt skilled nursing tele monitor vs. loop - bp control Consultation Date/Type/Reason Admit Date/Time Sep 21, 2018 at 15:58 Initial Consult Date Requesting Provider: MANUEL KENNY MD Date/Time of Note DATE: 09/24/18 TIME: 23:00 24 HR Interval Summary Free Text/Dictation no acute events. pt seen this am, denied any change in neuro status. no palp, dizziness, chest pain. tele reviewed nsr no events. Detailed Summary Eyes: no complaints ENT: no complaints Respiratory: no complaints Exam/Review of Systems Exam Vitals Vital Signs Date Temp Pulse Resp B/P (MAP) Pulse Ox O2 O2 Flow FiO2 Time Delivery Rate 09/24/18 98.7 88 16 152/87 98 Room Air 15:28 (108) 09/21/18 2 12:56 Intake and Output 09/23/18 09/23/18 09/24/18 1515:00 23:00 07:00 IntakeIntake Total 1500 ml 550 ml BalanceBalance 1500 ml 550 ml Constitutional: alert, oriented Psych: no complaints, nl mood/affect Head: normocephalic, atraumatic Eyes: nl conjunctiva ENMT: nl external ears & nose, nl lips & teeth, nl nasal mucosa & septum Neck: supple, non-tender; No jvd Respiratory: clear to auscultation, normal air movement Cardiovascular: regular rate and rhythm, nl pulses; No bruits, No diastolic murmur, No edema, No irregular rhythm, No systolic murmur Gastrointestinal: soft, non-tender Musculoskeletal: nl extremities to inspection, nl gait and stance Neurological: TELEPHONE CLERKS SUPERVISOR II-XII intact, nl mental status, nl speech, focal weakness (RUE) Results Result Diagram: 09/24/18 0546 09/24/18 0546 Results 24hrs Laboratory Tests Test 09/24/18 05:46 White Blood Count 3.8 L Red Blood Count 4.57 Hemoglobin 13.1 Hematocrit 41.1 Mean Corpuscular Volume 89.9 Mean Corpuscular Hemoglobin 28.7 L Mean Corpuscular Hemoglobin Concent 31.9 L Red Cell Distribution Width 12.5 Platelet Count 231 Mean Platelet Volume 10.0 Immature Granulocytes % 0.000 L Neutrophils % 40.8 Lymphocytes % 42.0 Monocytes % 15.9 H Eosinophils % 1.0 Basophils % 0.3 Nucleated Red Blood Cells % 0.0 Immature Granulocytes # 0.000 Neutrophils # 1.6 Lymphocytes # 1.6 Monocytes # 0.6 Eosinophils # 0.0 Basophils # 0.0 Nucleated Red Blood Cells # 0.0 Sodium Level 142 Potassium Level 3.9 Chloride Level 103 Carbon Dioxide Level 29 Anion Gap 10 Blood Urea Nitrogen 24 H Creatinine 1.45 H Est Glomerular Filtrat Rate mL/min 36 L Glucose Level 89 Calcium Level 9.7 Phosphorus Level 4.4 Magnesium Level 2.6 H Medications Medication mri brain report reviewed in emr SARAVANAN GOMEZ Sep 24, 2018 23:02
--- NOTE | 2018-09-26 13:50 | DS ---
DATE OF ADMISSION: 09/21/2018 DATE OF DISCHARGE: 09/24/2018 HISTORY OF PRESENT ILLNESS: This 67-year-old female with known severe labile hypertension was admitt ed to the hospital with right upper extremity weakness of 1 day's duration. PERTINENT PHYSICAL EXAMINATION: VITAL SIGNS: BP 119/107, pulse 81, respirations were 14. She was afebrile. CARDIOPULMONARY: Regular rhythm. No murmur. EXTREMITIES: No edema. ABDOMEN: Normal. HEART: Revealed weakness involving the right upper extremity that was mild. LABORATORY AND DIAGNOSTIC STUDIES: On admission, hematocrit 42.7, white count was normal, platelet c ount was normal, sed rate was 13. Protime and PTT were normal. Chemistries unrevealing with liver t ests that were normal. LDL cholesterol was 62. Albumin was normal. Creatinine increased to 1.24 on 09/22/2018 and 1.45 on 09/24/2018. Magnesium was 2.6, phosphorus was 4.4. Urinalysis was unreveali ng. Drug screen was negative. IMAGING: Carotid Doppler study revealed no evidence of critical carotid stenosis. MRI revealed a 17 mm recent infarct within the dorsal portion of the ellis radiata (left). CAT scan of the brain rev ealed stable chronic lacunar infarcts, right paracentral liz, right/left basal ganglia, right caudat e nucleus and right external capsule with periventricular white matter disease compatible with small vessel ischemia without hemorrhage. EKG revealed no acute changes. Chest x-ray was normal. HOSPITAL COURSE: Included obtaining the above-mentioned diagnostic studies. Neurology confirmed a l ikely thrombotic infarct. At time of discharge, her right upper extremity weakness had improved, BP remained stable on her antihypertensive regimen. At the time of discharge, she was stable. DISCHARGE DIAGNOSES: 1. Left cerebral thrombotic infarct with resultant right upper extremity weakness, improving. 2. Labile hypertension, now well controlled. PLAN: To be discharged on a no added salt diet. She will be transferred to [facility] for rehabili tation. DISCHARGE MEDICATIONS: 1. Aspirin 81 mg per day. 2. Atorvastatin 80 mg per day. 3. Hyzaar 100/12.5 mg per day. 4. Metoprolol 50 mg per day. 5. Nifedipine 60 mg per day. Dictated By: RENITA ARIAS/BHARAT Conf#: [id number] DID#: [id number] CC: RENITA WILL MD;*[facility]*
== END 2018-09-24 16:41 | DRG 66 ==
LOC: E/R 12:12 → TEL 15:58
PROVIDERS: ADMIT Internal Medicine; ATTEND Internal Medicine
DX: I63.30 Cerebral infarction due to thrombosis of unspecified cerebral artery (principal); G83.21 Monoplegia of upper limb affecting right dominant side; I10 Essential (primary) hypertension
CPT/HCPCS: 36415; 70450; 70551; 71045; 80048; 80053; 80061; 80307; 81003; 83036; 83735; 84100; 84484; 85025; 85610; 85651; 85730; 86592; 93005; 93306; 93880; 96360; 96361; 97110; 97116; 97161; J1644; J7030

== ENCOUNTER 2018-10-15 15:51 | Emergency (ER) | payer MEDICARE, OTHER ==
[~2018-10-15] VITALS: Ht 165.1 cm; Wt 70.6 kg
[~2018-10-15 15:51] MED LIST changes: +ASPI-1044 PO; +ATOR-2 PO; +LOSA1TAB28 PO
[2018-10-15 16:48] VITALS: BP 179/86; PULSE 75; RESP 20; Ht 165.1 cm; Wt 70.6 kg
== END 2018-10-15 20:43 | disposition left against medical advice (07) ==
LOC: E/R 15:51
DX: Z53.21 Procedure and treatment not carried out due to patient leaving prior to being seen by health care provider (principal)

== ENCOUNTER 2019-02-24 13:02 | Emergency (ER) | payer MEDICARE, OTHER ==
[~2019-02-24] VITALS: Ht 160 cm; Wt 70.1 kg
[2019-02-24 13:03] VITALS: Ht 160 cm; Wt 70.1 kg
[2019-02-24] MEDS ORDERED: NICARDipine HCL 30 MG CAPSULE PO ONE (13:30)
--- NOTE | 2019-02-24 14:01 | ERD ---
ER Documentation Chief Complaint Chief Complaint ELEVATED BP AT HOME. DIZZINESS HPI Patient is a 68-year-old female with stroke and hypertension who presents with high blood pressure. The patient is taking blood pressure medicines but was still having elevated blood pressure. She felt dizzy today. Her blood pressure was 226 on arrival but on recheck was improved. Her primary doctor is Dr. Will. Upon review of old medical records this is the patient's fifth visit to the ER since 2018. ROS All systems reviewed and are negative except as per history of present illness. Medications Home Meds Active Scripts Aspirin Delayed Release (Aspirin Delayed Release) 81 Mg Tablet.dr, 81 MG PO DAILY for 30 Days Prov:RENITA WILL MD 09/24/18 Atorvastatin* (Atorvastatin*) 80 Mg Tablet, 80 MG PO HS, #30 TAB Prov:RENITA WILL MD 09/24/18 Reported Medications Losartan-Hydrochlorothiazide (Losartan-HCTZ) 100-12.5 Mg Tab, 1 TAB PO DAILY, TAB 09/21/18 Nifedipine* (Nifedipine ER*) 60 Mg Tablet.sa, 60 MG PO DAILY, TAB.SA 09/03/18 Metoprolol Succinate* (Toprol XL*) 50 Mg Tab.er.24h, 50 MG PO DAILY, #30 TAB 09/03/18 Allergies Allergies: Coded Allergies: No Known Allergy (Unverified , 09/21/18) PMhx/Soc History of Surgery: No Anesthesia Reaction: No Hx Neurological Disorder: No Hx Respiratory Disorders: No Hx Cardiac Disorders: Yes (HTN) Hx Psychiatric Problems: No Hx Miscellaneous Medical Probl: No Hx Alcohol Use: No Hx Substance Use: No Hx Tobacco Use: Yes (20 years) Smoking Status: Former smoker FmHx Family History: No diabetes Physical Exam Vitals Vital Signs Date Temp Pulse Resp B/P (MAP) Pulse Ox O2 O2 Flow FiO2 Time Delivery Rate 02/24/19 97.9 57 20 177/98 99 Room Air 14:17 (124) 02/24/19 97.9 57 17 169/117 98 Room Air 13:28 (134) 02/24/19 97.9 64 16 226/126 99 13:03 (159) Physical Exam Const: No acute distress Head: Atraumatic Eyes: Normal Conjunctiva ENT: Normal External Ears, Nose and Mouth. Neck: Full range of motion. No meningismus. Resp: Clear to auscultation bilaterally Cardio: Regular rate and rhythm, no murmurs Abd: Soft, non tender, non distended. Normal bowel sounds Skin: No petechiae or rashes Back: No midline or flank tenderness Ext: No cyanosis, or edema Neur: Awake and alert, cranial nerves II through XII intact, strength is 5 out of 5 in all 4 extremities, no slurred speech, gait is normal Psych: Normal Mood and Affect Results 24 hrs Current Medications Medications Dose Sig/Genevieve Start Time Status Last (Trade) Ordered Route PRN Stop Time Admin Dose Reason Admin Nicardipine 30 mg ONCE ONCE 02/24/19 DC 02/24/19 HCl PO 13:30 13:35 (Cardene) 02/24/19 13:31 Procedures/MDM EKG read by me: Rate/Rhythm: Sinus bradycardia rate of 54 Intervals: Normal Impression: Bradycardia with flipped T waves Patient is a 68-year-old female who presents with dizziness and hypertension. She was given Cardene by mouth. EKG shows bradycardia but no signs of acute ST elevations or depressions. I believe outpatient management is appropriate. I spoke with Dr. Will who agrees with the plan and is willing to see the patient in his office for blood pressure management. The patient can return for any worsening symptoms. I doubt stroke, intrarenal mass, intrarenal hemorrhage, acute coronary syndrome, or hypertensive emergency requiring admission. Departure Diagnosis: Primary Impression: Hypertension Hypertension type: essential hypertension Qualified Codes: I10 - Essential (primary) hypertension Additional Impression: Dizziness Condition: Fair Patient Instructions: High Blood Pressure (Hypertension), Dizziness, Unk Cause Referrals: RENITA WILL MD (PCP) Additional Instructions: Call your primary care doctor TOMORROW for an appointment during the next 1 WEEK.Tell the outsole cementer that you were referred from this facility.See the doctor sooner or return here if your condition worsens before your appointment time. AMOR LOWRY MD Feb 24, 2019 14:01
[2019-02-24 14:17] VITALS: BP 177/98; PULSE 57; RESP 20
== END 2019-02-24 14:19 | disposition home or self-care (01) ==
LOC: E/R 13:02
DX: I10 Essential (primary) hypertension (principal); Z87.891 Personal history of nicotine dependence
CPT/HCPCS: 93005